=== PATIENT | female | born 1985 | race Caucasian/White ===

== ENCOUNTER 2021-05-13 13:18 | Emergency (ER) | payer OTHER, MEDICARE ==
[~2021-05-13] VITALS: Ht 157.5 cm; Wt 93.0 kg
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
--- NOTE | 2021-05-13 14:30 | NUR ---
PT RESTING IN BED. VSS. NADN. AWAITING HEAD CT.
--- NOTE | 2021-05-13 15:13 | NUR ---
PT BACK FROM CT
[2021-05-13] MEDS ORDERED: ACETAMINOPHEN 500 MG TABLET PO ONE (15:30)
[2021-05-13] MEDS ORDERED: ACETAMINOPHEN 500 MG TABLET ONE (15:40)
[2021-05-13 15:49] VITALS: BP 116/68
--- NOTE | 2021-05-13 16:27 | NUR ---
Patient given discharge instructions and they have confirmed that they understand the instructions. Patient ambulatory with steady gait. NAD, all questions answered appropriately, denies additional needs at this time. No personal belongings left in room after discharge.
== END 2021-05-13 16:28 | disposition home or self-care (01) ==
LOC: ED 13:37
DX: S02.2XXA Fracture of nasal bones, initial encounter for closed fracture (principal); S09.90XA Unspecified injury of head, initial encounter; Z88.2 Allergy status to sulfonamides; X58.XXXA Exposure to other specified factors, initial encounter; Y93.89 Activity, other specified; Y92.89 Other specified places as the place of occurrence of the external cause; Y99.8 Other external cause status
CPT/HCPCS: 70450; 70486; 72125; 99285